=== PATIENT | male | born 1985 | race Caucasian/White ===

== ENCOUNTER 2020-05-04 21:55 | Emergency (ER) | payer MEDICAID ==
[~2020-05-04] VITALS: Ht 177.8 cm; Wt 154.4 kg
[~2020-05-04 21:55] MED LIST: CLIN-97 PO
[2020-05-04] MEDS ORDERED: ondansetron 4mg rapidly disintigrating tab PO ONE (22:25)
[2020-05-04] MEDS ORDERED: HYDROcodone/acetaminophen 5mg/325mg tablet PO ONE (22:25)
[2020-05-04] MEDS ORDERED: IBUP-1984 PO (22:47)
[2020-05-04 23:16] VITALS: BP 160/103
== END 2020-05-04 23:22 | disposition home or self-care (01) ==
LOC: ER 21:56
DX: M25.571 Pain in right ankle and joints of right foot (principal); F41.9 Anxiety disorder, unspecified; Z86.14 Personal history of Methicillin resistant Staphylococcus aureus infection; Z72.89 Other problems related to lifestyle; Z79.2 Long term (current) use of antibiotics; Z79.899 Other long term (current) drug therapy
CPT/HCPCS: 73610; 99283